=== PATIENT | male | born 2000 | race Two or more races ===

== ENCOUNTER 2023-09-29 15:19 | Emergency (ER) | payer OTHER ==
[~2023-09-29] VITALS: Ht 172.7 cm; Wt 90.9 kg
[2023-09-29 15:51] VITALS: TEMP 100.2
[2023-09-29 18:47] VITALS: BP 148/79; PULSE 98; RESP 14
== END 2023-09-29 19:31 | disposition home or self-care (01) ==
LOC: EMS 15:19
DX: R04.0 Epistaxis (principal)
CPT/HCPCS: 99282; Z7502